=== PATIENT | female | born 1955 | race Caucasian/White ===

== ENCOUNTER 2017-12-14 10:39 | Emergency (ER) | payer MEDICARE ==
[~2017-12-14] VITALS: Ht 175.3 cm; Wt 107.7 kg
[2017-12-14] MEDS ORDERED: LEVO100T5 PO (11:06)
[2017-12-14 12:29] VITALS: BP 176/84
[2017-12-14] MEDS ORDERED: HYDROcodone/APAP 5/325 TABLET ONE (12:40)
[2017-12-14] MEDS ORDERED: HYDROcodone/APAP 5/325 TABLET PO ONE (13:00)
[2017-12-14 13:07] LABS: ALBUMIN 3.4 g/dL (3.4-5.0); ANION GAP 6 mmol/L (5-15); CALCIUM 8.4 mg/dL (8.5-10.1); CHLORIDE 113 mmol/L (98-107); CREATININE 0.67 mg/dL (0.55-1.02)
== END 2017-12-14 14:53 | disposition home or self-care (01) ==
LOC: ED 14:45
DX: G89.11 Acute pain due to trauma (principal); M25.561 Pain in right knee; X58.XXXA Exposure to other specified factors, initial encounter; Y93.02 Activity, running; Y92.009 Unspecified place in unspecified non-institutional (private) residence as the place of occurrence of the external cause; Y99.8 Other external cause status
CPT/HCPCS: 29505; 36415; 80048; 82040; 99285